=== PATIENT | male | born 1970 | race Caucasian/White ===

== ENCOUNTER 2016-05-29 07:26 | Inpatient (IN) | payer SELFPAY ==
[2016-05-29] VITALS (7 sets, daily range): BP systolic 116–137; BP diastolic 75–87
[~2016-05-29] VITALS: Ht 172.7 cm; Wt 75.9 kg
--- NOTE | 2016-05-29 07:40 | NUR ---
TRAUMA PROTOCOL NOT ACTIVATED PER DR SMITH. CL
--- OUTSIDE RECORDS SUMMARY | 2016-05-29 07:40 | XMS REPORT ---
Author Lucero Quinn Organization [employer] Address Unknown Phone Unavailable Care Team Providers Care Mobile Solutions Architect Name Role Phone Lucero Chung CP Unavailable Allergies No Known Allergies Problems Problem Type Condition Code Onset Dates Condition Status Problem Elevated ferritin R79.89 Active Problem Tremor R25.1 Active Problem Elevated liver enzymes R74.8 Active Medications No Known Medications Results No Known Results Summary Purpose [employer] Submission
--- NOTE | 2016-05-29 07:41 | NUR ---
PARTIAL TRAUMA ACTIVATED. CL
--- NOTE | 2016-05-29 07:47 | NUR ---
pt ambulated to toilet with no assistance, just supervision. Pt denies pain at this time.
--- NOTE | 2016-05-29 07:51 | NUR ---
Pt unable to void at this time.
[2016-05-29] MEDS ORDERED: LSNP20T PO (08:05)
[2016-05-29 08:07] LABS: BASOPHILS % (AUTO) 1 % (0-2); EOSINOPHILS % (AUTO) 0 % (0-4); MEAN CORPUSCULAR VOLUME 94 FL (80-100); MEAN PLATELET VOLUME 10.7 FL (6.0-9.5); MONOCYTES # (AUTO) 0.7 X10^3; MONOCYTES % (AUTO) 7 % (3-11); NEUTROPHILS % (AUTO) 83 % (51-67); PLATELET COUNT 146 10^3uL (150-450); WHITE BLOOD COUNT 10.84 10^3uL (4.0-11.0)
[2016-05-29 08:10] LABS: MEAN CORPUSCULAR HEMOGLOBIN 35.1 PG (26.0-34.0); MEAN CORPUSCULAR HGB CONC 37.3 g/dL (31.0-37.0)
[2016-05-29 08:15] LABS: ALKALINE PHOSPHATASE 121 U/L (38-126); ANION GAP 25.6 MEQ/L (3-15); BUN/CREATININE RATIO 7 (10-20); MAGNESIUM* 1.4 mg/dL (1.6-2.3); TOTAL PROTEIN 7.9 g/dL (6.4-8.5)
--- NOTE | 2016-05-29 08:28 | Diagnostic Imaging Report ---
PROCEDURE: CT head without contrast. TECHNIQUE: Multiple contiguous axial images were obtained through the brain without the use of intravenous contrast. INDICATION: Seizure. FINDINGS: Ventricles and cortical gyral pattern are normal. There is no intracranial hemorrhage or mass effect. No extra-axial fluid collection. Basal cisterns are clear. Mastoid air cells and paranasal sinuses are clear where visualized. No evidence of calvarial fracture. IMPRESSION: Negative CT scan of the head without contrast. Dictated by: Dictated on workstation # [id number]
[2016-05-29 08:50] LABS: ALBUMIN 4.4 g/dL (3.4-5.0); ANION GAP 15.3 MEQ/L (3-15); TOTAL PROTEIN 7.5 g/dL (6.4-8.5)
[2016-05-29 08:53] LABS: MAGNESIUM* 1.3 mg/dL (1.6-2.3)
[2016-05-29] MEDS ORDERED: POTASSIUM CHLORIDE ORAL SOLUTION 20 MEQ/15 ML (KCL) UDC PO ONE (09:00)
[2016-05-29] MEDS ORDERED: POTASSIUM CL IVPB 10 MEQ/100ML 100 ML IV ONE ×2 (09:00→21:57)
[2016-05-29] MEDS ORDERED: MAGNESIUM 1 GM/100 ML IVPB 100 ML IV SCH (09:05)
--- NOTE | 2016-05-29 09:08 | NUR ---
DR SMITH TALKS WITH DR BRAR RE PT. CL
[2016-05-29 09:11] LABS: BILIRUBIN,URINE Negative (Negative); CLARITY,URINE Clear; COLOR,URINE Yellow; GLUCOSE, URINE (UA) Negative (Negative); LEUKOCYTE ESTERASE ,URINE Negative (Negative); PH,URINE 6.5 (5.0 - 8.0)
[2016-05-29 09:17] LABS: ABG OXYGEN SATURATION 98 % (95-98); ABG PCO2 29 mmHg (35-45); ABG PH 7.57 (7.35-7.45); ABG PO2 87 mmHg (80-105)
--- NOTE | 2016-05-29 09:17 | NUR ---
DR SMITH TALKS WITH DR PEÑA RE PT. CL
[2016-05-29 09:18] LABS: ARTERIAL BLOOD GAS DELIVERY Room Air
[2016-05-29 09:21] LABS: AMPHETAMINE SCREEN, URINE Negative (Negative); CANNABINOID SCREEN, URINE Negative (Negative); METHAMPHETAMINE SCREEN URINE S NEGATIVE (NEGATIVE); OPIATE SCREEN URINE Negative (Negative); PROPOXYPHENE STAT NEGATIVE (NEGATIVE)
[2016-05-29] MEDS: MAGNESIUM 1 GM/100 ML IVPB 100 ML IV SCH ×2 (09:28→10:25)
--- NOTE | 2016-05-29 09:28 | NUR ---
DR BARR STATES PT SHOULD BE ADMITTED TO ICU INSTEAD OF MS. CL
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
[2016-05-29] MEDS ORDERED: ONDANSETRON 2 MG/ML (Z0FRAN) 2 ML VIAL IV PRN (10:30)
[2016-05-29] MEDS ORDERED: MAGNESIUM HYDROXIDE 80MG/ML (MILK OF MAGNESIA) 30 ML UDC PO PRN (10:30)
[2016-05-29] MEDS ORDERED: CALCIUM CARBONATE CHEWABLE 300 MG (TUMS) TABLET PO PRN (10:30)
[2016-05-29] MEDS ORDERED: ACETAMINOPHEN 325 MG TAB (TYLENOL) PO PRN (10:30)
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
[2016-05-29] MEDS ORDERED: LIDOCAINE PF 1% (XYLOCAINE) 2 ML VIAL INJ PRN (10:50)
[2016-05-29] MEDS ORDERED: NICOTINE 21 MG (NICODERM) PATCH TD SCH (11:01)
[2016-05-29] MEDS ORDERED: NS FLUSH 10 ML PRN IV (11:05)
[2016-05-29] MEDS ORDERED: NS FLUSH 3 ML PRN IV (11:05)
--- NOTE | 2016-05-29 13:52 | NUR ---
Report given to Di GRIJALVA and care relinquished. Pt remains alert and oriented and has had family into visit this afternoon.
--- NOTE | 2016-05-29 14:08 | NUR ---
Received order from Dr. Bowling to recheck K and Mg levels at this time.
[2016-05-29 14:50] LABS: MAGNESIUM* 1.9 mg/dL (1.6-2.3)
--- NOTE | 2016-05-29 15:12 | NUR ---
MED REC COMPLETE--patient reports only one home med (lisinopril), but has not been taking this since 10/2015.
[2016-05-29] MEDS: MAGNESIUM OXIDE 400 MG (MAG-OX) TAB PO SCH (17:34)
[2016-05-29] MEDS: LIDOCAINE PF 1% (XYLOCAINE) 2 ML VIAL INJ PRN (17:35)
[2016-05-29] MEDS: POTASSIUM CL IVPB 10 MEQ/100ML 100 ML IV SCH ×3 (17:35→21:58)
--- NOTE | 2016-05-29 18:00 | NUR ---
Pt. not tolerating KCL infusion well, reports significant burning at IV site. IV site (LH) is without redness or swelling. KCL with lidocaine rate decreased to 50ml/hr, running concurrent with NS @ 75ml/hr.
[2016-05-29] MEDS: HALL'S COUGH DROPS MM PRN ×2 (18:25→19:37)
[2016-05-30] VITALS (8 sets, daily range): BP systolic 115–141; BP diastolic 72–94
[2016-05-30] MEDS ORDERED: POTASSIUM CL IVPB 10 MEQ/100ML 100 ML IV ONE ×2 (00:06→09:00)
[2016-05-30] MEDS: POTASSIUM CL IVPB 10 MEQ/100ML 100 ML IV SCH ×5 (00:07→11:29)
[2016-05-30] MEDS: HALL'S COUGH DROPS MM PRN (03:24)
[2016-05-30 06:14] LABS: BASOPHILS % (AUTO) 1 % (0-2); EOSINOPHILS % (AUTO) 0 % (0-4); LYMPHOCYTES # (AUTO) 0.9 X10^3; MEAN CORPUSCULAR VOLUME 96 FL (80-100); MEAN PLATELET VOLUME 10.8 FL (6.0-9.5); MONOCYTES # (AUTO) 0.7 X10^3; MONOCYTES % (AUTO) 10 % (3-11); NEUTROPHILS # (AUTO) 4.9 X10^3; NEUTROPHILS % (AUTO) 75 % (51-67); PLATELET COUNT 80 10^3uL (150-450); WHITE BLOOD COUNT 6.51 10^3uL (4.0-11.0)
[2016-05-30 06:29] LABS: ALBUMIN 3.1 g/dL (3.4-5.0); ANION GAP 9.8 MEQ/L (3-15); CALCULATED IONIZED CALCIUM 4.3 mg/dL (3.8-4.6); TOTAL PROTEIN 5.5 g/dL (6.4-8.5)
[2016-05-30 06:32] LABS: MEAN CORPUSCULAR HEMOGLOBIN 35.5 PG (26.0-34.0)
[2016-05-30] MEDS ORDERED: methylPREDNISolone 125 MG (Solu-MEDROL) VIAL IV ONE (07:25)
[2016-05-30] MEDS: MAGNESIUM OXIDE 400 MG (MAG-OX) TAB PO SCH ×2 (07:36→17:17)
[2016-05-30] MEDS: LIDOCAINE PF 1% (XYLOCAINE) 2 ML VIAL INJ PRN ×4 (07:37→11:29)
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
--- NOTE | 2016-05-30 07:53 | NUR ---
Pt. able to get up to restroom independently this am. He denies n/v. He reports that his tongue is swollen and causing him pain, including pain with swallowing and that it "might" be making him feel "a little" short of breath. Lungs are CTA, airway is patent, SpO2 97% on RA and RR 16-20. Upon inspection, pt. is not able to stick tongue outside of mouth, he states d/t swelling. Superior aspect of R tongue has a notable edematous lump, while the inferior aspect of the L tongue is notably edematous as well. Small white patches noted to bilateral inferior aspect of tongue. Pt. states he has been hungry since midnight, but has been nervous to eat anything d/t swelling, though he did not report the swelling to the night nurse. Dr. Bowling notified at 0717 and order received for Solu-Medrol, which has been given at this time. IV of NS @ 75ml/hr switched to RAC IV site for potassium infusion. Will monitor for burning sensation to IV site and adjust rate as needed.
--- NOTE | 2016-05-30 08:29 | NUR ---
Pt. states he feels that the swelling in his tongue has decreased some, he can move it around in his mouth more. Tolerating KCL infusion without difficulty.
[2016-05-30] MEDS ORDERED: NS FLUSH 3 ML DAILY IV SCH (09:00)
[2016-05-30] MEDS ORDERED: LIDOCAINE PO PRN ×2 (09:45→21:45)
[2016-05-30] MEDS ORDERED: MAALOX PO PRN ×2 (09:45→21:45)
[2016-05-30] MEDS ORDERED: BENADRYL PO PRN ×2 (09:45→21:45)
[2016-05-30] MEDS: NYSTATIN ORAL SUSPENSION 5 ML UDC PO SCH ×3 (10:07→17:15)
[2016-05-30] MEDS ORDERED: PATCH REMOVAL TOP SCH (10:59)
[2016-05-30] MEDS ORDERED: CALCIUM CARBONATE CHEWABLE 300 MG (TUMS) TABLET PO PRN (18:30)
--- NOTE | 2016-05-30 19:00 | NUR ---
RECEIVED REPORT FROM RUDI [place] AT THIS TIME.
[2016-05-30] MEDS ORDERED: HALL'S COUGH DROPS MM PRN (19:05)
--- NOTE | 2016-05-30 20:05 | NUR ---
PATIENT AMBULATED FROM ROOM 343 TO ROOM 305 ACCOMPANIED BY THIS RN. TOLERATES AMBULATION IN HALLWAY VERY WELL. ALL NEEDS MET IN NEW ROOM. EXPLAINED PLAN OF CARE FOR SHIFT. ALL QUESTIONS ANSWERED. WILL CONTINUE TO MONITOR AND ASSESS NEEDED.
[2016-05-30] MEDS ORDERED: NYSTATIN ORAL SUSPENSION 5 ML UDC PO SCH (21:00)
--- NOTE | 2016-05-30 22:00 | NUR ---
Visiting with family members. Sitting in recliner chair. No discomforts voiced. IV continues to infuse at 75cc an hour. Is up ad rose in room. Steady when up. Call light within reach.
[2016-05-30] MEDS ORDERED: ONDANSETRON 2 MG/ML (Z0FRAN) 2 ML VIAL IV PRN (22:30)
[2016-05-30] MEDS ORDERED: ACETAMINOPHEN 325 MG TAB (TYLENOL) PO PRN (22:30)
[2016-05-31 00:13] VITALS: BP 159/98
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
[2016-05-31 03:59] VITALS: BP 159/95
--- NOTE | 2016-05-31 05:58 | NUR ---
Rested at short intervals tonight. No discomforts voiced. No seizure activity noted. IV patent without complications to site. Call light within reach.
--- NOTE | 2016-05-31 06:18 | NUR ---
Patient is trying to find his car. States he has many things to do. Hands shaky. Verbalizes with nurse in short sentences. Appears anxious. Has repetitive mouth movements, which were not noted earlier during the night. Voiding without difficulty.
[2016-05-31 07:16] VITALS: BP 145/98
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
[2016-05-31 08:00] VITALS: BP 145/98
[2016-05-31] MEDS ORDERED: MAGNESIUM HYDROXIDE 80MG/ML (MILK OF MAGNESIA) 30 ML UDC PO PRN (09:00)
[2016-05-31] MEDS ORDERED: SODIUM CHLORIDE FLUSH 3 ML SYR IV SCH (09:00)
--- NOTE | 2016-05-31 09:01 | NUR ---
IV in RAC removed. Patient is requesting a discharge from the hospital at this time
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
--- NOTE | 2016-05-31 09:48 | NUR ---
patient is down with radiology at this time
[2016-05-31 09:52] LABS: MAGNESIUM* 1.8 mg/dL (1.6-2.3)
[2016-05-31 10:11] LABS: ALBUMIN 3.7 g/dL (3.4-5.0); CALCULATED IONIZED CALCIUM 4.1 mg/dL (3.8-4.6); TOTAL PROTEIN 6.4 g/dL (6.4-8.5)
[2016-05-31 10:17] VITALS: BP_SYST 130; BP_SYST 138; BP_SYST 141; BP_DIAS 92; BP_DIAS 95; BP_DIAS 96
[2016-05-31 10:21] LABS: ANION GAP 12.3 MEQ/L (3-15)
--- NOTE | 2016-05-31 10:28 | NUR ---
Patient approaches this RN fully clothed and requests IV removal and to leave. The patient insists on leaving at this time. IV removed and encouragement and direction provided by Dr. Lee. AMA paperwork is signed and the patient is escorted out of the hospital
[2016-05-31] MEDS ORDERED: SODIUM CHLORIDE FLUSH 3 ML SYR IV PRN (11:05)
[2016-05-31] MEDS ORDERED: SODIUM CHLORIDE FLUSH 10 ML SYR IV PRN (11:05)
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
[2016-05-31] MEDS ORDERED: LIDOCAINE PF 1% (XYLOCAINE) 2 ML VIAL INJ PRN (17:05)
[2016-05-31 20:09] LABS: HEPATITIS A ANTIBODY IGM Negative; HEPATITIS B CORE ABY IGM Negative; HEPATITIS B SURFACE ANTIGEN C Negative
== END 2016-05-31 10:28 | disposition left against medical advice (07) | DRG 312 ==
LOC: EDUNIT# 07:26 → ED 07:27 → ICU 09:43 → MED/SURG 11:10 → ICU 11:10 → MED/SURG 05-30 20:05
PROVIDERS: ADMIT Family Medicine; ATTEND Family Medicine
DX: R55 Syncope and collapse (principal); B37.0 Candidal stomatitis; E87.3 Alkalosis; E87.1 Hypo-osmolality and hyponatremia; E87.6 Hypokalemia; E83.42 Hypomagnesemia; R74.0 Nonspecific elevation of levels of transaminase and lactic acid dehydrogenase [LDH]; E83.119 Hemochromatosis, unspecified; R94.31 Abnormal electrocardiogram [ECG] [EKG]; K14.8 Other diseases of tongue
CPT/HCPCS: 36415; 36600; 70450; 71020; 80053; 80074; 80307; 80320; 81003; 82140; 82550; 82803; 83735; 84132; 84443; 85025; 85610; 93005; 93010; 96365; 96375; 99285

== ENCOUNTER → 2016-05-29 | Outpatient (CLI) | payer SELFPAY | LOC: EMS 07:05 | PROVIDERS: ATTEND Emergency Medicine | DX: Z04.1 Encounter for examination and observation following transport accident (principal); R41.0 Disorientation, unspecified ==